=== PATIENT | female | born 2005 | race Caucasian/White ===

== ENCOUNTER 2024-01-11 08:00 | Outpatient (RCR) | payer OTHER, SELFPAY | END 2024-05-10 23:59 | disposition home or self-care (01) | PROVIDERS: Visit Provider Family Medicine | DX: M54.50 Low back pain, unspecified (principal); M54.10 Radiculopathy, site unspecified; M62.81 Muscle weakness (generalized); Z51.89 Encounter for other specified aftercare | CPT/HCPCS: 72148; 97110; 97116; 97161 ==